=== PATIENT | male | born 1960 | race Caucasian/White ===

== ENCOUNTER 2022-10-17 07:10 | Outpatient (CLI) | payer OTHER, SELFPAY ==
--- NOTE | ~2022-10-17 | US_ITS ---
Ultrasound of the Abdominal Aorta INDICATION: Abdominal aortic aneurysm TECHNIQUE: Grayscale, color Doppler, and pulsed Doppler images of the aorta and common iliac arteries were obtained. COMPARISON: None. FINDINGS: Maximum vascular dimensions are as follows: Proximal aorta: 2.2 cm Mid aorta: 4.0 cm Distal aorta: 3.3 cm Right common iliac artery: 2.2 cm Left common iliac artery: 2.0 cm There is an abdominal aortic aneurysm at the midportion measuring up to 4.0 cm in maximum diameter. IMPRESSION: Abdominal aortic aneurysm measuring up to 4.0 cm in maximum diameter. Reviewed, dictated and finalized at location .
== END 2022-10-17 07:11 | disposition home or self-care (01) ==
LOC: CHSIMG 07:15
PROVIDERS: PCP Internal Medicine; Visit Provider Internal Medicine
DX: I71.40 Abdominal aortic aneurysm, without rupture, unspecified (principal)
CPT/HCPCS: 76775

== ENCOUNTER 2022-12-25 06:09 | Day surgery (SDC) | payer OTHER, SELFPAY ==
[2022-10-27 10:01] VITALS: BMI 32.6
[2022-12-12 08:17] VITALS: BMI 32.4
--- NOTE | 2022-12-25 07:47 | P.HP_ITS ---
History of Present Illness History of Present Illness Consent: Risks, benefits, and alternatives have been discussed and questions answered. Patient agrees to proceed with procedure. Chief complaint: Positive Cologuard Narrative: Won Montgomery is a 62 year old male Presents for screening colonoscopy. Patient recently found to have positive Cologuard test. Patient states that his weight appetite and his bowel movements are normal. He denies abdominal pain. He denies bleeding. Family history is noncontributory. Review of Systems Review of Systems: Review of systems is noncontributory. [facility] Social History Social History Years smoked: 10 Smoking status: Current every day smoker Tobacco type: cigarettes Alcohol intake: current Substance use: never Substance use type: does not use Living arrangements: with family Spiritual care concerns: No Meds Home Medications and Allergies Home Medications Medication Instructions Recorded Confirmed Type sodium,potassium,mag sulfates 17.5 See Rx Instructions PO .COMPLEX 10/27/22 Rx gram-3.13 gram-1.6 gram oral soln #354 mL (Suprep Bowel Prep Kit) amlodipine 10 mg tablet 10 mg PO DAILY 12/12/22 12/12/22 History carvedilol 12.5 mg tablet 12.5 mg PO BID 12/12/22 12/12/22 History citalopram 20 mg tablet 20 mg PO DAILY 12/12/22 12/12/22 History rivaroxaban 20 mg tablet (Xarelto) 20 mg PO DAILY 12/12/22 12/12/22 History simvastatin 40 mg tablet 40 mg PO DAILY 12/12/22 12/12/22 History tamsulosin 0.4 mg capsule 0.4 mg PO DAILY 12/12/22 12/12/22 History Allergies Allergy/AdvReac Type Severity Reaction Status Date / Time No Known Allergies Allergy Verified 12/25/22 07:12 Exam Narrative: Physical exam reveals patient to be alert. Vital signs stable. HEENT exam is unremarkable. Patient is anicteric. Lungs are clear to auscultation and to percussion. heart is without murmur or extra sounds. Abdomen bowel sounds are present soft nontender with no organomegaly digital external rectal exam is normal. Assessment and Plan Assessment and plan (1) Positive colorectal cancer screening using Cologuard test: Code(s): R19.5 - Other fecal abnormalities Status: Acute Assessment and Plan: Patient presents for screening colonoscopy because of positive Cologuard test. Further instructions will be given after endoscopy.
--- NOTE | 2022-12-25 08:05 | WPDANESEPPF ---
Anes - Initial Pre Proc Eval Procedure: Operation Date: 12/25/22 08:30 Proposed Procedures p Diagnostic Colonoscopy - Shree Chan MD Date/Time: 12/25/22 08:05 Surgeon: Shree Chan MD Pre Op Diagnosis: Positive Cologuard Patient Data Age: 62 Gender: M Height: 1.93 m Weight: 117.4 kg Allergies Allergy/AdvReac Type Severity Reaction Status Date / Time No Known Allergies Allergy Verified 12/25/22 07:12 Home Medications Medication Instructions Recorded Confirmed Type sodium,potassium,mag sulfates 17.5 See Rx Instructions PO .COMPLEX 10/27/22 Rx gram-3.13 gram-1.6 gram oral soln #354 mL (Suprep Bowel Prep Kit) amlodipine 10 mg tablet 10 mg PO DAILY 12/12/22 12/12/22 History carvedilol 12.5 mg tablet 12.5 mg PO BID 12/12/22 12/12/22 History citalopram 20 mg tablet 20 mg PO DAILY 12/12/22 12/12/22 History rivaroxaban 20 mg tablet (Xarelto) 20 mg PO DAILY 12/12/22 12/12/22 History simvastatin 40 mg tablet 40 mg PO DAILY 12/12/22 12/12/22 History tamsulosin 0.4 mg capsule 0.4 mg PO DAILY 12/12/22 12/12/22 History Patient hx anesthesia problems: none Family hx anesthesia problems: none Results Review: All pre-operative results and documents have been reviewed as part of the pre-operative evaluation. [facility] Social History Social History Years smoked: 10 Smoking status: Current every day smoker Tobacco type: cigarettes Alcohol intake: current Substance use: never Substance use type: does not use Living arrangements: with family Spiritual care concerns: No Anes - Eval Final PreProcedure Day of Procedure 12/25/22 08:05 Patient weight: overweight Heart: irregular rhythm Lungs: decreased breath sounds Airway: Mallampati scale class II Neurological: alert and oriented Last oral intake: >/= 8 hours ASA classification: III Emergent: no Anesthetic plan: proceed Anesthesia type and monitoring: general GIVS and standard monitoring Results Review: All pre-operative results and documents have been reviewed as part of the pre-operative evaluation. Informed Consent: The patient's anesthetic plan and its attendant risks and benefits were discussed with the patient/family/POA. Questions were solicited and answers provided to the satisfaction of the patient/family/POA.
[2022-12-25 08:08] VITALS: BP 138/104; PULSE 74; RESP 16; TEMP 36.8; O2SAT 98
[2022-12-25] MEDS: LACTATED RINGERS 1,000 ML 150 ML IV CONT (08:11)
[2022-12-25 08:39] VITALS: BP 113/78; PULSE 85; RESP 14; O2SAT 99
[2022-12-25 08:49] VITALS: BP 103/85; PULSE 67; RESP 16; O2SAT 95
--- NOTE | 2022-12-25 08:55 | WPDANESPN ---
Anes - Prog Note Post-Op Date/Time: 12/25/22 08:55 Cardiovascular status: normal Respiratory status: normal Airway patency: baseline Mental status: baseline Post-Op hydration status: normal Vital Signs: Last Vital Signs Temp 36.8 C 12/25/22 08:08 Pulse 67 12/25/22 08:49 Resp 16 12/25/22 08:49 BP 103/85 12/25/22 08:49 Pulse Ox 95 12/25/22 08:49 O2 Del Method Room Air 12/25/22 08:49 Pain Score (VAS): 0 I/O: Intake & Output 12/24/22 12/25/22 12/25/22 23:59 07:59 15:59 Intake Total 400 Balance 400 Patient Feedback: Patient satisfied with anesthetic care.
[2022-12-25 08:59] VITALS: BP 123/77; PULSE 66; RESP 15; O2SAT 99
== END 2022-12-25 09:11 | disposition home or self-care (01) ==
PROVIDERS: PCP Internal Medicine; Visit Provider Internal Medicine Gastroenterology
PROC: 0DJD8ZZ Inspection of Lower Intestinal Tract, Via Natural or Artificial Opening Endoscopic (ICD-10-PCS; CPT 45378; principal; 2022-12-25 08:30)
DX: R19.5 Other fecal abnormalities (principal); K64.8 Other hemorrhoids
CPT/HCPCS: 45378

== ENCOUNTER 2024-07-28 07:09 | Outpatient (CLI) | payer OTHER, SELFPAY ==
--- NOTE | ~2024-07-28 | US_ITS ---
Ultrasound of the Abdominal Aorta INDICATION: Abdominal aortic aneurysm TECHNIQUE: Grayscale, color Doppler, and pulsed Doppler images of the aorta and common iliac arteries were obtained. COMPARISON: 10/17/2022 FINDINGS: Maximum vascular dimensions are as follows: Proximal aorta: 2.6 cm Mid aorta: 3.8 cm Distal aorta: 4.5 cm Right common iliac artery: 2.3 cm Left common iliac artery: 2.1 cm No para-aortic mass or fluid collection seen. IMPRESSION: Infrarenal abdominal aortic aneurysm measures up to 4.5 cm in maximum diameter. This appears to be in creased in size from prior exam. Reviewed, dictated and finalized at location . IMPRESSION: Infrarenal abdominal aortic aneurysm measures up to 4.5 cm in maximum diameter. This appears to be increased in size from prior exam.
== END 2024-07-28 07:10 | disposition home or self-care (01) ==
PROVIDERS: PCP Internal Medicine; Visit Provider Internal Medicine
DX: I71.40 Abdominal aortic aneurysm, without rupture, unspecified (principal)
CPT/HCPCS: 76775

== ENCOUNTER 2024-12-22 14:46 | Outpatient (CLI) | payer OTHER, SELFPAY ==
--- OUTSIDE RECORDS SUMMARY | 2024-12-22 07:50 | XMS_ITS | Encounter Summary ---
Author Organization [facility] Address [facility] [place] [address] Care Team Providers Care Home Lending Officer Name Role Phone Tata Smith MD Primary Care Provider [phone] Encounter Details Date Type Department Care Team (Late st Contact Info) Description 12/22/2024 7:50 AM CDT Hospital Encounter [facility] [id number] [place] [address] [place] [address] [facility] [address] [place] [address] Arrived Social History Tobacco Use Types Packs/Day Years Used Date Smoking Tobacco: Every Day Smokeless Tobacco: Current Chew Alcohol Use Standard Drinks/Week Comments Not Currently 0 (1 standard drink = 0.6 oz pur e alcohol) Sex and Gender Information Value Date Recorded Sex Assigned at Male 11/07/2020 6:40 AM CDT Legal Sex Male 10:59 PM [employer] Gender Identity Male 11/07/2020 6:40 AM CDT Sexual Orientation Straight 11/07/2020 6: 40 AM CDT documented as of this encounter Functional Status * RETIRED Are you deaf or do you have serious difficulty hearing Answer Date of Assessment Author Status No 11/16/2020 8:15 PM CDT Activ e * RETIRED Are you blind or do you have serious difficulty seeing, even when wearing glasses? Answer Date of Assessment Author Status No 11/16/2020 8:15 PM CDT Activ e * Do you have serious difficulty walking or climbing stairs? Answer Date of Assessment Author Status No 11/16/2020 8:15 PM CDMadhavi Chowdary RN Active * Do you have difficulty dressing or bathing? Answer Date of Assessment Author Status No 11/16/2020 8:15 PM CDT Madhavi Callejas RN Active * Because of a physical, mental, or emotional condition, do you have difficulty doing errands alone such as visiting a doctor's office or shopping? Answer Date of Assessment Author Status No 11/16/2020 8:15 PM CDT Madhavi Callejas RN Active documented as of this encounter Mental Status * Because of a physical, mental, or emotional condition, do you have serious difficulty concentrating, remembering, or making decisions? Answer Entry Date Author Status No 11/16/2020 8:15 PM CDT Madhavi Callejas RN Active documented in this encounter Plan of Treatment Upcoming Encounters Date Type Department Care Team (Latest Contact Info) Description 12/25/2024 8:00 AM CDT Hospital Encounter [facility] [address] [place] [address] Mg Yang MD [address] [place] [phone] 12/25/2024 8:00 AM CDT Anesthesia Event [facility] [address] [place] [address] Toby Bond MD [address] [place] [address] 12/25/2024 8:00 AM CDT - 12/25/2024 9:29 AM CDT Surgery [facility] [address] [place] [address] Mg Yang MD [address] [place] [phone] Endovenous Laser Ablation Left Greater Sapphenous Vein 12/29/2024 8:00 AM CDT Appointment [facility] [address] [place] [address] [place] [address] [phone] 01/05/2025 8:15 AM CDT Appointment [facility] [address] [place], [place] [phone] [place] [address] [phone] 01/12/2025 8:15 AM CDT Appointment [facility] [address] [place], [place] [phone] [place] [address] [address] Scheduled Procedures Name Priority Associated Diagnoses Date/Ti me ABLATION VENOUS I87.312 12/25/2024 8:00 AM CDT documented as of this encounter Goals Goal Patient Goal Type Associated Problems Recent Progress Patient-Stated? Author Autogenerat ed Goal Care Plan Autogenerated Problem No Cristine Warren RN documented as of this encounter Visit Diagnoses Not on filedocumented in this encounter Administered Medications Active Administered Medications - up to 3 most recent administrations Medication Order MAR Action Action Date Dose Rate Site lidocaine 2 % URO-JET jelly Topical, As needed, Other, pre-debridement, Starting on Sun12/22/24 at 0809, Until Discontinued Given 12/22/2024 8:10 AM CDT 6 mLs Inactive Administered Medications - up to 3 most recent administrations Medication Order MAR Action Action Date Dose Rate Site mupirocin (BACTROBAN) 2 % ointment Topical, Once, 1 dose, On Sun12/22/24 at 0930 Given 12/22/2024 9:02 AM CDT documented in this encounter Additional Health Concerns Active Problems Noted Date Diagnosed Date Autogenerated Problem 12/10/2024 documented as of this encounter Care Teams Home Lending Officer Relationship Specialty Start Date End Date Tata Smith MD [address] [place] [address] PCP - General INTERNAL MEDICINE 08/07/19 documented as of this encounter
--- NOTE | 2024-12-22 14:53 | ECG_ITS ---
Test Date: 2024-12-22 15:01:52 Measurements Intervals Eagle Rate: 57 P: 0 CO: 0 QRS: 52 QRSD: 105 T: 62 QT: 396 QTc: 388 Interpretive Statements ATRIAL FIBRILLATION WITH SLOW VENTRICULAR RESPONSE ABNORMAL ECG No previous ECG available for comparison Electronically Signed On 12-23-2024 08:10:37 CDT by Darrel Moon M.D.
--- OUTSIDE RECORDS SUMMARY | 2024-12-22 17:46 | XMS_ITS | Encounter Summary ---
Author Organization [facility] Address [facility] [place] [address] Care Team Providers Care Plate Take Out Worker Name Role Phone Tata Smith MD Primary Care Provider [phone] Encounter Details Date Type Department Care Team (Late st Contact Info) Description 09/14/2018 Abstract [facility] [address] [place] [address] , Generic Conversion, Social History Tobacco Use Types Packs/Day Years Used Date Smoking Tobacco: Never Assessed Sex and Gender Information Value Date Recorded Sex Assigned at Male 11/07/2020 6:40 AM CDT Legal Sex Male 10:59 PM SEWER Gender Identity Male 11/07/2020 6:40 AM CDT Sexual Orientation Straight 11/07/2020 6: 40 AM CDT documented as of this encounter Plan of Treatment Upcoming Encounters Date Type Department Care Team (Latest Contact Info) Description 12/25/2024 8:00 AM CDT Hospital Encounter [facility] [id number] [place] [address] [place] [address] [facility] [address] [place] [address] 12/25/2024 8:00 AM CDT Anesthesia Event [facility] [address] [place], [place] [phone] Toby Bond MD [address] [place] [address] [address] [place] [address] 12/25/2024 8:00 AM CDT - 12/25/2024 9:29 AM CDT Surgery [facility] [address] [place] [address] Mg Yang MD [address] [place] [phone] Endovenous Laser Ablation Left Greater Sapphenous Vein 12/29/2024 8:00 AM CDT Appointment [facility] [address] [place] [address] Mg Yang MD [address] [place] [phone] 01/05/2025 8:15 AM CDT Appointment [facility] [address] [place] [address] Mg Yang MD [address] [place] [phone] 01/12/2025 8:15 AM CDT Appointment [facility] [address] [place] [address] Mg Yang MD [address] [place] [phone] Scheduled Procedures Name Priority Associated Diagnoses Date/Ti me ABLATION VENOUS I87.312 12/25/2024 8:00 AM CDT documented as of this encounter Visit Diagnoses Not on filedocumented in this encounter Additional Health Concerns Infection Onset Date Last Indicated Resolved Time COVID-19 Rule Out 11/07/2020 11/07/2020 11/07/2020 10:17 AM CDT documented as of this encounter Care Teams Plate Take Out Worker Relationship Specialty Start Date End Date Tata Smith MD [address] [place] [phone] PCP - General INTERNAL MEDICINE 08/07/19 documented as of this encounter
--- OUTSIDE RECORDS SUMMARY | 2024-12-22 17:46 | XMS_ITS | Clinical Summary ---
Author Organization [facility] Address [address] [place] [address] Care Team Providers Care Easement Worker Name Role Phone Tata Smith MD Primary Care Provider [phone] Allergies No known active allergies Medications amLODIPine 10 MG tablet Take 1 tablet (10 mg total) by mouth daily. 0 Active carvedilol 12.5 MG tablet Take 1 tablet (12.5 mg total) by mouth 2 (two) times daily. 9 Active simvastatin 40 MG tablet Take 1 tablet (40 mg total) by mouth daily. 0 Active citalopram 20 MG tablet Take 1 tablet (20 mg total) by mouth daily. Active HYDROcodone-lev taminophen 5-325 MG tabletIndicatio ns:Acute Pain < 7 Day Supply Take 1 tablet by mouth every 4 (four) hours as needed. Indications: Acute Pain < 7 Day Supply 10 tablet 1 Active apixaban 5 MG tablet Take 1 tablet (5 mg total) by mouth 2 (two) times daily. 60 tablet 6 1 Active aspirin 81 MG chewable tablet Chew 1 tablet (81 mg total) by mouth daily. Active doxycycline hyclate (VIBRA-TABS) 100 MG tablet Take 1 tablet (100 mg total) by mouth 2 (two) times daily for 7 days. 14 tablet 5 11/26/19 25 mupirocin (BACTROBAN) 2 % ointment Apply topically daily for 7 days. 22 g 5 11/26/19 25 Active Problems Problem Noted Date Diagnosed Date Persistent atrial fibrillation (CMS/HCC HHS/HCC) 01/17/2021 Chronic anticoagulation 01/17/2021 Hyperlipidemia 11/07/2020 HTN (hypertension) 11/07/2020 Resolved Problems Problem Noted Date Diagnosed Date Resolved Date Partial small bowel obstruct ion ([facility]) 11/16/2020 11/19/2020 Acute appendicitis 11/07/2020 Encounters Date Type Department Care Team Description 12/22/2024 7:50 AM CDT Hospital Encounter [facility] [address] [place] [address] Mg Yang MD Arrived 12/22/2024 Travel 12/15/2024 7:59 AM CDT - 12/15/2024 11:59 PM CDT Hospital Encounter [facility] [address] [place] [address] Rupali Butler NP Discharge Disposition: Home or Self Care (Routine Discharge) 12/15/2024 Travel 12/09/2024 8:31 AM CDT - 12/09/2024 11:59 PM CDT Hospital Encounter [facility] [address] [place] [address] Mg Yang MD Discharge Disposition: Home or Self Care (Routine Discharge) 12/09/2024 Travel 12/02/2024 9:20 AM CDT - 12/02/2024 11:59 PM CDT Hospital Encounter [facility] [address] [place] [address] Mg Yang MD Discharge Disposition: Home or Self Care (Routine Discharge) 12/02/2024 Travel 11/24/2024 8:49 AM CDT - 11/24/2024 11:59 PM CDT Hospital Encounter [facility] [address] [place] [address] Mg Yang MD Discharge Disposition: Home or Self Care (Routine Discharge) 11/24/2024 7:30 AM CDT - 11/24/2024 8:48 AM CDT Hospital Encounter [facility] [address] [place] [address] Mg Yang MD Discharge Disposition: Home or Self Care (Routine Discharge) 11/24/2024 Travel 11/18/2024 10:46 AM CDT - 11/18/2024 11:59 PM CDT Hospital Encounter [facility] [address] [facility] [place] [address] Mg Yang MD Discharge Disposition: Home or Self Care (Routine Discharge) 11/18/2024 Travel 11/11/2024 7:34 AM CDT - 11/11/2024 11:59 PM CDT Hospital Encounter [facility] [address] [place] [address] Mg Yang MD Discharge Disposition: Home or Self Care (Routine Discharge) 11/11/2024 Travel 10/15/2024 9:00 AM CDT - 10/15/2024 11:59 PM CDT Hospital Encounter [facility] [address] [place] [address] Angella Alvarez, TOMASA Discharge Disposition: Home or Self Care (Routine Discharge) 10/15/2024 Travel from Last 3 Months Family History Medical History Relation Comments Heart Disease Father Relation Status Comments Father Social History Tobacco Use Types Packs/Day Years Used Date Smoking Tobacco: Every Day Smokeless Tobacco: Current Chew Alcohol Use Standard Drinks/Week Comments Not Currently 0 (1 standard drink = 0.6 oz pur e alcohol) Sex and Gender Information Value Date Recorded Sex Assigned at Male 11/07/2020 6:40 AM CDT Legal Sex Male 10:59 PM FRAMER Gender Identity Male 11/07/2020 6:40 AM CDT Sexual Orientation Straight 11/07/2020 6: 40 AM CDT Last Filed Vital Signs Vital Sign Reading Time Taken Comments Blood Pressure 132/80 01/04/2021 11:46 AM CDT Pulse 75 01/04/2021 11:46 AM CDT Temperature 35.7 C (96.2 F) 11/19/2020 1:45 PM CDT Respiratory Rate 18 01/04/2021 11:46 AM CDT Oxygen Saturation 97% 11/19/2020 1:45 PM CDT Inhaled Oxygen Concentration - - Weight 117.9 kg (260 lb) 12/17/2024 1:20 PM CDT Height 193 cm (6' 4) 12/17/2024 1:20 PM CDT Body Mass Index 31.65 12/17/2024 1:20 PM CDT Plan of Treatment Upcoming Encounters Date Type Department Care Team (Latest Contact Info) Description 12/25/2024 8:00 AM CDT Hospital Encounter [facility] [address] [place] [address] [place] [address] [phone] 12/25/2024 8:00 AM CDT Anesthesia Event [facility] [address] [place] [address] Toby Bond MD [address] [place] [address] 12/25/2024 8:00 AM CDT - 12/25/2024 9:29 AM CDT Surgery [facility] [address] [place] [id number] Mg Yang MD [address] [place] [address] Endovenous Laser Ablation Left Greater Sapphenous Vein 12/29/2024 8:00 AM CDT Appointment [facility] [address] [place] [address] [place] [id number] [place] [phone] 01/05/2025 8:15 AM CDT Appointment [facility] [address] [place] [address] [place] [address] [address] 01/12/2025 8:15 AM CDT Appointment [facility] [address] [place] [address] [place] [address] [facility] [address] [place] [address] Scheduled Procedures Name Priority Associated Diagnoses Date/Ti me ABLATION VENOUS I87.312 12/25/2024 8:00 AM CDT Health Maintenance Due Date Last Done Comments Colorectal Cancer Screening Colonoscopy (10 Years) 1960 Annual Physical 02/08/1963 Hepatitis C 02/08/1978 DTaP, Tdap and Td Vaccines ( 1 - Tdap) 02/08/1979 Pneumococcal Vaccine: 50+ Ye ars (1 of 2 - PCV) 02/08/1979 Zoster Vaccines (1 of 2) 02/08/2010 RSV Immunization or 60+ Years (1 - Risk 60-74 years 1-dose series) 2020 COVID-19 Vaccine (1 - 2023-2 5 season) 2024 Meningococcal B Vaccine Aged Out No l onger eligible based on patient's age to complete this topic Meningococcal Vaccine Aged Out No fátima arminda eligible based on patient's age to complete this topic RSV Immunizations Under 20 Months Aged Out No longer eligible based on patient's age to complete this topic Goals Goal Patient Goal Type Associated Problems Recent Progress Patient-Stated? Author Autogenerat ed Goal Care Plan Autogenerated Problem No Cristine Warren, medical records specialist Procedure Name Priority Date/Time Associated Diagnosis Comments CULTURE, WOUND, W/GRAM STAIN Routine 12/15/2024 8:49 AM CDT Preop testing MRSA SCREENING Routine 12/15/2024 8:48 AM CDT Preop testing USV VENOUS REFLUX LOW LT Routine 11/24/2024 8:51 AM CDT Edema CULTURE, TISSUE W/GRAM STAIN Routine 11/11/2024 9:15 AM CDT Wound drainage USV HUSSAIN LTD BANDAR Routine 10/15/2024 10:32 AM CDT PVD (peripheral vascular disease) from Last 3 Months Results * CULTURE, WOUND, W/GRAM STAIN (12/15/2024 8:49 AM CDT) SPEC DESCRIPTION LEG,LEFT 12/15/2024 8:57 AM CDT [facility] SPECIAL REQUESTS NO SPECIAL REQUEST 12/15/2024 8:57 AM CDT [facility] GRAM STAIN RESULT NO WHITE BLOOD CELLS SEEN 12/15/2024 3:33 PM CDT [facility] GRAM STAIN RESULT NO ORGANISMS SEEN 12/15/2024 3:33 PM CDT [facility] CULTURE RESULT NO GROWTH 3 DAYS 12/18/2024 8:06 AM CDT [facility] STRUCTURE OF LEFT LOWER LIMB / Unknown 12/15/2024 8:49 AM CDT 12/15/2024 9:25 AM CDT us Rupali Butler NP MICROBIOLOGY - GENERAL ORDER MITCHELL Final Result [facility] [address] [place] [address], [place] [phone] [facility] [address] [place] [address], [place] [phone] * MRSA SCREENING (12/15/2024 8:48 AM CDT) SPEC DESCRIPTION NASAL 12/15/2024 8:56 AM CDT [facility] SPECIAL REQUESTS NO SPECIAL REQUEST 12/15/2024 8:56 AM CDT [facility] CULTURE RESULT NO METHICILLIN RESISTANT STAPHYLOCOCCUS AUREUS ISOLATED 12/16/2024 11:37 AM CDT [facility] SPECIMEN FROM INTERNAL NOSE / Unknown 12/15/2024 8:48 AM CDT 12/15/2024 9:25 AM CDT us Rupali Butler NP MICROBIOLOGY - GENERAL ORDER MITCHELL Final Result [facility] [address] [place] [address], [place] [phone] [facility] [address] [place] [address], [place] [phone] * USV VENOUS REFLUX LOW LT (11/24/2024 8:51 AM CDT) Anatomical Region Laterality Modality Extremity Ultrasound 11/25/2024 9:57 PM CDT Impressions 11/25/2024 10:01 PM CDT IMPRESSION: 1. No evidence of DVT in the left lower extremity. 2. Positive reflux in the left greater saphenous vein in the mid thigh, knee, and mid calf. 3. Positive packing and wrapping supervisor approximately 15 cm proximal to the medial malleolus. Referred By: Interpreted By: Vijay Hart MD, 11/25/2024 9:57 PM Narrative 11/25/2024 10:01 PM CDT [facility] [address] [facility] [place] [address] IMAGING STUDIES: USV VENOUS REFLUX LOW LT DATE: 11/24/2024 8:05 AM CLINICAL HISTORY: edema. Wound of the left lower extremity. Hypertension. FINDINGS: THERE IS NO EVIDENCE OF DVT WITHIN THE LEFT COMMON FEMORAL VEIN OR PROXIMAL LEFT GREATER SAPHENOUS VEINS. NO EVIDENCE OF DVT WITHIN THE ENTIRE LEFT FEMORAL VEIN. NO DVT WITHIN THE LEFT POPLITEAL VEIN OR LEFT POSTERIOR TIBIAL VEIN. No reflux within the left deep venous system. Positive reflux in the left greater saphenous vein in the mid thigh 2.6 seconds. Diameter 4.7 mm. Positive reflux in the left greater saphenous vein at the knee of 2.3 seconds. Diameter 4.9 mm. Positive reflux in the left greater saphenous vein in the mid calf of 3.5 seconds. Diameter 4.6 mm. Positive packing and wrapping supervisor approximately 15 cm proximal to the medial malleolus.. Color flow Doppler with spectral and wave form analysis Procedure Note Vijay Hart MD - 11/25/2024 [facility] [address] [place] [address] IMAGING STUDIES: USV VENOUS REFLUX LOW LTDATE: 11/24/2024 8:05 AM CLINICAL HISTORY: edema. Wound of the left lower extremity.Hypertension. FINDINGS: THERE IS NO EVIDENCE OF DVT WITHIN THE LEFT COMMON FEMORAL VEIN ORPROXIMAL LEFT GREATER SAPHENOUS VEINS. NO EVIDENCE OF DVT WITHIN THE ENTIRE LEFT FEMORAL VEIN. NO DVT WITHIN THE LEFT POPLITEAL VEIN OR LEFT POSTERIOR TIBIAL VEIN. No reflux within the left deep venous system. Positive reflux in the left greater saphenous vein in the mid thigh 2.6seconds. Diameter 4.7 mm. Positive reflux in the left greater saphenous vein at the knee of 2.3seconds. Diameter 4.9 mm. Positive reflux in the left greater saphenous vein in the mid calf of 3.5seconds. Diameter 4.6 mm. Positive packing and wrapping supervisor approximately 15 cm proximal to the medialmalleolus.. Color flow Doppler with spectral and wave form analysis IMPRESSION: 1. No evidence of DVT in the left lower extremity. 2. Positive reflux in the left greater saphenous vein in the mid thigh,knee, and mid calf. 3. Positive packing and wrapping supervisor approximately 15 cm proximal to the medialmalleolus. Referred By: Interpreted By: Vijay Hart MD, 11/25/2024 9:57 PM Mg Yang MD [facility] Final Result * (ABNORMAL) CULTURE, TISSUE W/GRAM STAIN (11/11/2024 9:15 AM CDT) SPEC DESCRIPTION LEG,LEFT 11/11/2024 9:32 AM CDT [facility] SPECIAL REQUESTS NO SPECIAL REQUEST 11/11/2024 9:32 AM CDT [facility] GRAM STAIN RESULT NO WHITE BLOOD CELLS SEEN 11/12/2024 11:44 AM CDT [facility] GRAM STAIN RESULT NO ORGANISMS SEEN 11/12/2024 11:44 AM CDT [facility] CULTURE RESULT SPARSE GROWTH OF STAPHYLOCOCCU S AUREUS (A) 11/14/2024 7:48 AM CDT [facility] STRUCTURE OF LEFT LOWER LIMB / Unknown 11/11/2024 9:15 AM CDT 11/11/2024 6:03 PM CDT Narrative Organism Antibiotic Method Susceptibility Staphylococcus aureus CLINDAMYCIN JAZMINE (VITEK) <=0.25: Sensitive Staphylococcus aureus ERYTHROMYCIN JAZMINE (VITEK) <=0.25: Sensitive Staphylococcus aureus OXACILLIN JAZMINE (VITEK) <=0.25: Sensitive Staphylococcus aureus PENICILLIN G JAZMINE (VITEK) >=0.5: Resistant Staphylococcus aureus TRIMETH-SULFAMETH. JAZMINE (VITEK) <=10: Sensitive Staphylococcus aureus TETRACYCLINE JAZMINE (VITEK) <=1: Sensitive Mg Yang MD MICROBIOLOGY - GENERAL ORDERABLE S Final Result [facility] [address] [place] [address], [place] [phone] [facility] [address] [place] [address], [place] [phone] * USV HUSSAIN LTD BANDAR (10/15/2024 10:32 AM CDT) Anatomical Region Laterality Modality Extremity Ultrasound 10/20/2024 3:20 PM CDT Impressions 10/20/2024 3:23 PM CDT IMPRESSION: 1. NORMAL RESTING HUSSAIN BILATERALLY. 2. ELEVATED RESTING SYSTOLIC PRESSURES WITH SLIGHTLY DIMINISHED RIGHT BRACHIAL SYSTOLIC PRESSURE COMPARED TO LEFT. CLINICAL CORRELATION WOULD BE RECOMMENDED. Signed: Azael Vaughn MD Referred By: ANGELLA ALVAREZ Interpreted By: Azael Vaughn MD, 10/20/2024 3:20 PM Narrative 10/20/2024 3:23 PM CDT [address] [place] [address] PATIENT NAME: BARRETT ESTRELLA EXAM: Ultrasound vascular HUSSAIN bilateral DATE OF EXAM: 10/15/2024 COMPARISON EXAM: None INDICATION: PVD TECHNIQUE: Initial systolic brachial pressures were obtained. Sequential pressures and waveforms were then obtained at the ankle PT/DP bilaterally. FINDINGS: There is some discrepancy in peak systolic pressure readings at the brachial level measuring 154 on the right and 178 on the left. The findings suggest systemic hypertension with possible proximal right upper extremity stenosis. On the right side resting systolic pressures measure 202 PT and 183 TP was slightly blunted waveforms. Normal resting right-sided HUSSAIN 1.13. On the left side resting systolic pressures measured 203 PT and 200 DPM is slightly blunted waveforms. Normal resting left HUSSAIN 1.14. Procedure Note Azael Vaughn MD - 10/20/[address] [place] [id number] PATIENT NAME: BARRETT ESTRELLA EXAM: Ultrasound vascular HUSSAIN bilateral DATE OF EXAM: 10/15/2024 COMPARISON EXAM: None INDICATION: PVD TECHNIQUE: Initial systolic brachial pressures were obtained. Sequentialpressures and waveforms were then obtained at the ankle PT/DPbilaterally. FINDINGS: There is some discrepancy in peak systolic pressure readings atthe brachial level measuring 154 on the right and 178 on the left. Thefindings suggest systemic hypertension with possible proximal right upperextremity stenosis. On the right side resting systolic pressures measure 202 PT and 183 TP wasslightly blunted waveforms. Normal resting right-sided HUSSAIN 1.13. On the left side resting systolic pressures measured 203 PT and 200 DPM isslightly blunted waveforms. Normal resting left HUSSAIN 1.14. IMPRESSION: 1. NORMAL RESTING HUSSAIN BILATERALLY. 2. ELEVATED RESTING SYSTOLIC PRESSURES WITH SLIGHTLY DIMINISHED RIGHTBRACHIAL SYSTOLIC PRESSURE COMPARED TO LEFT. CLINICAL CORRELATION WOULDBE RECOMMENDED. Signed: Azael Vaughn MD Referred By: ANGELLA ALVAREZ Interpreted By: Azael Vaughn MD, 10/20/2024 3:20 PM us Angella Alvarez [facility] Final Result from Last 3 Months Additional Health Concerns Active Problems Noted Date Diagnosed Date Autogenerated Problem 12/10/2024 Insurance [employer] Advance Directives * Full Code (Latest Code Status on File) Date Activated Date Inactivated Comments 11/16/2020 7:37 PM 11/19/2020 7:27 PM * Full Code Date Activated Date Inactivated Comments 11/07/2020 12:49 PM 11/09/2020 1:09 PM Care Teams Easement Worker Relationship Specialty Start Date End Date Tata Smith MD [address] [place] [address] PCP - General INTERNAL MEDICINE 08/07/19
--- OUTSIDE RECORDS SUMMARY | 2024-12-22 17:46 | XMS_ITS | Encounter Summary ---
Author Organization [facility] Address Count includes the [facility] [place] [address] Care Team Providers Care Cardiovascular Technician Name Role Phone Tata Smith MD Primary Care Provider [phone] Encounter Details Date Type Department Care Team (Latest Contact Info) Description 12/22/2024 Travel Social History Tobacco Use Types Packs/Day Years Used Date Smoking Tobacco: Every Day Smokeless Tobacco: Current Chew Alcohol Use Standard Drinks/Week Comments Not Currently 0 (1 standard drink = 0.6 oz pur e alcohol) Sex and Gender Information Value Date Recorded Sex Assigned at Male 11/07/2020 6:40 AM CDT Legal Sex Male 10:59 PM LICENSED PRACTICAL NURSE CLINIC NURSE Gender Identity Male 11/07/2020 6:40 AM CDT [...] PM CDT Madhavi Callejas RN Active * Do you have difficulty [...] Description 12/25/2024 8:00 AM CDT Hospital Encounter [facility] [address] [place] [phone] [place] [address] [phone] 12/25/2024 8:00 AM CDT Anesthesia Event [facility] [address] [place] [address] Toby Bond MD [address] [place] [address] 12/25/2024 8:00 AM CDT - 12/25/2024 9:29 AM CDT Surgery [facility] [address] [place] [address] [place] [address] [address] Endovenous Laser Ablation Left Greater Sapphenous Vein 12/29/2024 8:00 AM CDT Appointment [facility] [address] [place] [address] [phone] [place] [address] [address] 01/05/2025 8:15 AM CDT Appointment [facility] [address] [place] [address] [place] [address] [address] 01/12/2025 8:[address] [facility] [address] [place], [place] [phone] [place] [address] [address] Scheduled Procedures Name Priority Associated Diagnoses Date/Ti me ABLATION VENOUS I87.312 12/25/2024 8:00 AM CDT documented as of this encounter Goals Goal Patient Goal Type Associated Problems Recent Progress Patient-Stated? Author Autogenerat ed Goal Care Plan Autogenerated Problem No Cristine Warren RN documented as of this encounter Visit Diagnoses Not on filedocumented in this encounter Additional Health Concerns Active Problems Noted Date Diagnosed Date Autogenerated Problem 12/10/2024 documented as of this encounter Care Teams Cardiovascular Technician Relationship Specialty Start Date End Date Tata Smith MD [address] [place] [address] PCP - General INTERNAL MEDICINE 08/07/19 documented as of this encounter
== END 2024-12-22 14:47 | disposition home or self-care (01) ==
LOC: CHSCARD 14:48
PROVIDERS: PCP Internal Medicine; Visit Provider Nurse Practitioner Family
DX: Z01.810 Encounter for preprocedural cardiovascular examination (principal); I73.9 Peripheral vascular disease, unspecified; I48.91 Unspecified atrial fibrillation; R94.31 Abnormal electrocardiogram [ECG] [EKG]
CPT/HCPCS: 93005